=== PATIENT | male | born 1950 | race Caucasian/White ===

== ENCOUNTER 2019-08-31 17:11 | Outpatient (CLI) | payer MEDICARE, OTHER ==
[2019-09-01 12:17] LABS: SARS-CoV-2 MS2 Positive; SARS-CoV-2 N Gene Negative; SARS-CoV-2 S Gene Negative; SARS-CoV-2 orf1ab Negative
== END 2019-08-31 17:12 | disposition home or self-care (01) ==
LOC: SCSLAB 17:11
PROVIDERS: ATTEND Specialist
DX: Z01.812 Encounter for preprocedural laboratory examination (principal); Z11.59 Encounter for screening for other viral diseases
CPT/HCPCS: 87635; U0003